=== PATIENT | male | born 1980 | race African-American/Black ===

== ENCOUNTER 2018-08-24 10:41 | Emergency (ER) | payer MEDICAID ==
[~2018-08-24] VITALS: Ht 167.6 cm; Wt 61.0 kg
[~2018-08-24 10:41] MED LIST: HYDR-4383 PO
[2018-08-24 10:47] VITALS: BP 118/65
[2018-08-24] MEDS ORDERED: CEPH-571 PO (11:43)
== END 2018-08-24 11:51 | disposition home or self-care (01) ==
LOC: ER 10:41
DX: K13.0 Diseases of lips (principal); F12.90 Cannabis use, unspecified, uncomplicated
CPT/HCPCS: 99283

== ENCOUNTER 2019-08-11 14:52 | Emergency (ER) | payer MEDICAID ==
[~2019-08-11] VITALS: Ht 170.2 cm; Wt 77.3 kg
[~2019-08-11 14:52] MED LIST changes: +CEPH-571 PO; +LIDOcaine 1% W/epiNEPHrine 1:100,000 20ml vial ONE
[2019-08-11 15:06] VITALS: BP 110/68
== END 2019-08-11 16:35 | disposition home or self-care (01) ==
LOC: ER 14:52
DX: S63.284A Dislocation of proximal interphalangeal joint of right ring finger, initial encounter (principal); S01.81XA Laceration without foreign body of other part of head, initial encounter; F12.90 Cannabis use, unspecified, uncomplicated; F10.99 Alcohol use, unspecified with unspecified alcohol-induced disorder; Z79.899 Other long term (current) drug therapy; Y08.89XA Assault by other specified means, initial encounter; Y93.89 Activity, other specified; Y92.89 Other specified places as the place of occurrence of the external cause; Y99.8 Other external cause status; Y90.9 Presence of alcohol in blood, level not specified
CPT/HCPCS: 26700; 26770; 73120; 73130; 99284

== ENCOUNTER 2024-09-15 19:15 | Emergency (ER) | payer MEDICAID ==
[~2024-09-15] VITALS: Ht 170.2 cm; Wt 74.0 kg
[~2024-09-15 19:15] MED LIST changes: -LIDOcaine 1% W/epiNEPHrine 1:100,000 20ml vial ONE
[2024-09-15 21:26] VITALS: BP 137/84; PULSE 102; RESP 16; TEMP 98.9; O2SAT 99
== END 2024-09-15 19:52 | disposition home or self-care (01) ==
LOC: ER 19:16
DX: S01.531A Puncture wound without foreign body of lip, initial encounter (principal); F12.90 Cannabis use, unspecified, uncomplicated; Z79.2 Long term (current) use of antibiotics; Z02.89 Encounter for other administrative examinations; X58.XXXA Exposure to other specified factors, initial encounter; Y93.89 Activity, other specified; Y92.89 Other specified places as the place of occurrence of the external cause; Y99.8 Other external cause status
CPT/HCPCS: 99283

== ENCOUNTER 2025-09-17 00:17 | Emergency (ER) | payer MEDICAID ==
[~2025-09-17] VITALS: Ht 170.2 cm; Wt 75.9 kg
[2025-09-17 00:18] VITALS: BP 123/62; PULSE 102; RESP 16; TEMP 98.7; O2SAT 99
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
== END 2025-09-17 02:04 ==
LOC: ER 00:17
DX: Z02.89 Encounter for other administrative examinations (principal); F12.90 Cannabis use, unspecified, uncomplicated; V49.9XXA Car occupant (driver) (passenger) injured in unspecified traffic accident, initial encounter; Y93.89 Activity, other specified; Y92.89 Other specified places as the place of occurrence of the external cause; Y99.8 Other external cause status
CPT/HCPCS: 99283